=== PATIENT | female | born 1990 | race Caucasian/White ===

== ENCOUNTER → 2020-11-16 | Outpatient (CLI) | payer OTHER ==
[2020-11-16 16:12] LABS: THYROID STIMULATING HORMONE 1.83 uIU/ML (0.358-3.740)
[2020-11-16 17:16] LABS: HEMOGLOBIN A1c 5.5 %
== END ==
LOC: M PLALAB 13:57
PROVIDERS: ATTEND Advanced Practice Midwife
DX: Z87.59 Personal history of other complications of pregnancy, childbirth and the puerperium (principal); R63.5 Abnormal weight gain

== ENCOUNTER → 2021-01-02 | Outpatient (CLI) | payer OTHER | LOC: M PLALAB 10:11 | PROVIDERS: ATTEND Obstetrics & Gynecology | DX: Z87.59 Personal history of other complications of pregnancy, childbirth and the puerperium (principal) ==

== ENCOUNTER → 2021-06-03 | Outpatient (CLI) | payer OTHER ==
[2021-06-03 14:24] LABS: FREE T4 0.98 NG/DL (0.76-1.46); THYROID STIMULATING HORMONE 2.12 uIU/ML (0.358-3.740)
[2021-06-03 14:25] LABS: PROGESTERONE 1.47 NG/ML
== END ==
LOC: M PLALAB 09:19
PROVIDERS: ATTEND Obstetrics & Gynecology
DX: Z31.9 Encounter for procreative management, unspecified (principal)

== ENCOUNTER → 2021-09-20 | Outpatient (CLI) | payer OTHER | LOC: M PLALAB 15:33 | PROVIDERS: ATTEND Obstetrics & Gynecology | DX: N91.2 Amenorrhea, unspecified (principal) ==

== ENCOUNTER → 2021-11-07 | Outpatient (CLI) | payer OTHER ==
[2021-11-07 15:15] LABS: FREE T4 0.91 NG/DL (0.76-1.46); HCG, SERUM QUANTITATIVE < 1.0 MIU/ML
[2021-11-07 15:37] LABS: THYROID PEROXIDASE ANTIBODY > 1300.0 U/ML (<60.0)
== END ==
LOC: M PLALAB 10:18
PROVIDERS: ATTEND Obstetrics & Gynecology Reproductive Endocrinology
DX: Z01.812 Encounter for preprocedural laboratory examination (principal); Z31.41 Encounter for fertility testing

== ENCOUNTER → 2022-01-24 | Outpatient (CLI) | payer OTHER ==
[2022-01-25 18:07] LABS: CARDIOLIPIN IGA ANTIBODY 60 APL U/mL (0-11); CARDIOLIPIN IGG ANTIBODY <9 GPL U/mL (0-14); CARDIOLIPIN IGM ANTIBODY <9 MPL U/mL (0-12)
== END ==
LOC: M PLALAB 08:13
PROVIDERS: ATTEND Obstetrics & Gynecology Reproductive Endocrinology
DX: N96 Recurrent pregnancy loss (principal)

== ENCOUNTER → 2023-10-27 | Outpatient (CLI) | payer OTHER ==
[~2023-10-27] MED LIST: CO Q10CA PO; D 101000; LEVO88TA3; METF500T13; PREN1TAB11 PO
[2023-10-27 16:56] LABS: FREE T4 1.12 NG/DL (0.89-1.76)
[2023-10-27 16:57] LABS: THYROID STIMULATING HORMONE 2.581 uIU/ML (0.55-4.78); TOTAL 25(OH) VITAMIN D 42.5 NG/ML (20.0-100.0)
[2023-10-27 19:10] LABS: IMMUNOGLOBULIN A 378.5 MG/DL (40-350); RHEUMATOID FACTOR QUANT 4.9 IU/ML (<14)
[2023-10-27 19:13] LABS: FREE T3 3.1 PG/ML (2.3-4.2)
[2023-10-27 19:22] LABS: THYROID PEROXIDASE ANTIBODY > 1300.0 U/ML (<60.0)
[2023-10-29 12:03] LABS: THRYOGLOBULIN ANTIBODIES (ATA) < 1 IU/mL (< or = 1); THYROGLOBULIN QUANTITATIVE 26.2 ng/mL (2.8-40.9)
[2023-10-29 15:23] LABS: ANA PATTERN Nuclear, Nucleolar (NEGATIVE); ANA SCREEN, IFA POSITIVE (NEGATIVE); ANA TITER 1:40 titer (<1:40)
[2023-10-30 01:07] LABS: TISSUE TRANSGLUTAMINASE IgA < 1.0 U/mL (<15.0); UNITSIGG FOR GLIADIN IGG 56.5 U/mL (<15.0)
== END ==
LOC: M WUC 11:33
PROVIDERS: ATTEND Nurse Practitioner Pediatrics
DX: E06.3 Autoimmune thyroiditis (principal); F90.2 Attention-deficit hyperactivity disorder, combined type; F33.2 Major depressive disorder, recurrent severe without psychotic features; F43.20 Adjustment disorder, unspecified